=== PATIENT | male | born 1985 | race American Indian/Alaskan Native ===

== ENCOUNTER 2016-11-14 08:42 | Inpatient (IN) | payer OTHER ==
[2016-11-12 09:25] VITALS: BP 119/83
[~2016-11-14] VITALS: Ht 177.8 cm; Wt 116.4 kg
[~2016-11-14 08:42] MED LIST: INSU100V10 SQ-INSULIN; LISI5TAB7 PO; NPH,100V4 SQ-INSULIN; POTASSIUM/MAGNESIUM PO; SAXA5TAB PO; SIMV40TA3 PO
[2016-11-14] MEDS ORDERED: THROMBIN 5,000 UNIT VIAL TP ONE (09:28)
[2016-11-14] MEDS ORDERED: LIDOCAINE/PF 1%-EPI 1:200K, 30ML ONE (09:28)
[2016-11-14] MEDS ORDERED: BACITRACIN 50,000 UNIT ONE (09:28)
[2016-11-14] MEDS ORDERED: LACTATED RINGERS 1,000 ML IV SCH (09:50)
[2016-11-14] MEDS ORDERED: FENTANYL PF 100 MCG/2ML ONE ×3 (12:17→13:35)
[2016-11-14] MEDS: FENTANYL PF 100 MCG/2ML IV PRN ×4 (12:55→13:30)
[2016-11-14] MEDS: morphine SULFATE 10 MG/ML, 1ML IV PRN ×2 (13:10→13:25)
[2016-11-14] MEDS ORDERED: morphine SULFATE 10 MG/ML, 1ML ONE (13:17)
[2016-11-14] MEDS ORDERED: OXYcodone 5 MG/5 ML ORAL.SOL UDC PO PRN (13:30)
[2016-11-14] MEDS ORDERED: LABETALOL 5MG/ML, 20ML IV PRN (13:30)
[2016-11-14] MEDS ORDERED: ONDANSETRON 2MG/ML, 2ML IVPush PRN (13:30)
[2016-11-14] MEDS ORDERED: HYDROmorphone 1 MG/ML, 1ML IV PRN (13:30)
[2016-11-14 14:35] VITALS: BP 107/67
[2016-11-14 14:37] VITALS: BP 107/67
[2016-11-14] MEDS ORDERED: ONDANSETRON 2MG/ML, 2ML IV PRN (15:00)
[2016-11-14] MEDS ORDERED: HYDROcodone/APAP 10/325 MG TABLET PO PRN (15:00)
[2016-11-14] MEDS ORDERED: DIAZEPAM 5 MG/ML, 2ML IV PRN (15:00)
[2016-11-14] MEDS ORDERED: PROMETHAZINE 25 MG/ML, 1ML IM PRN (15:00)
[2016-11-14] MEDS ORDERED: MAGNESIUM HYDROXIDE 8%, 30ML UDC PO PRN (15:00)
[2016-11-14] MEDS ORDERED: DIPHENHYDRAMINE 50 MG/ML, 1ML IVPush PRN (15:00)
[2016-11-14] MEDS ORDERED: HYDROcodone/APAP 5/325 TABLET PO PRN (15:00)
[2016-11-14] MEDS ORDERED: BISACODYL 10 MG SUPP PR PRN (15:00)
[2016-11-14] MEDS ORDERED: ROCURONIUM 10 MG/ML ONE (15:51)
[2016-11-14] MEDS ORDERED: PROPOFOL 10 MG/ML, 20ML ONE (15:51)
[2016-11-14] MEDS ORDERED: CEFAZOLIN 1,000 MG ONE (15:51)
[2016-11-14] MEDS ORDERED: SUCCINYLCHOLINE 20 MG/ML, 10ML ONE (15:51)
[2016-11-14] MEDS ORDERED: GLYCOPYRROLATE 0.2MG/1ML ONE (15:51)
[2016-11-14] MEDS ORDERED: NEOSTIGMINE 1 MG/ML, 10ML ONE (15:51)
[2016-11-14] MEDS: INSULIN REGULAR 100 UNITS/ML, 3ML VIAL SQ-INSULIN PRN (16:51)
[2016-11-14] MEDS: METOCLOPRAMIDE 5 MG/ML, 2ML IV SCH ×2 (16:56→22:04)
[2016-11-14] MEDS ORDERED: MORPHINE SULFATE 4 MG/ML, 1ML IVPush PRN (17:00)
[2016-11-14] MEDS: NS + 20MEQ KCL 1,000 ML IV SCH (17:48)
[2016-11-14] MEDS: CEFAZOLIN PMX 1GM/50ML 50 ML IVPB SCH (17:48)
[2016-11-14 18:50] VITALS: BP 115/68
[2016-11-14] MEDS ORDERED: INSULIN REGULAR 100 UNITS/ML, 3ML VIAL SQ-INSULIN SCH (21:00)
[2016-11-14] MEDS: SIMVASTATIN 40 MG TABLET PO SCH (22:01)
[2016-11-14] MEDS: INSULIN NPH HUMAN 100 UNIT/ML, 3ML VIAL SQ-INSULIN PRN (22:02)
[2016-11-14 23:31] VITALS: BP 120/74
[2016-11-15] MEDS: CEFAZOLIN PMX 1GM/50ML 50 ML IVPB SCH (02:30)
[2016-11-15 02:58] VITALS: BP 124/76
[2016-11-15] MEDS: METOCLOPRAMIDE 5 MG/ML, 2ML IV SCH ×4 (04:35→21:20)
[2016-11-15] MEDS: NS + 20MEQ KCL 1,000 ML IV SCH ×3 (05:13→17:54)
[2016-11-15 05:19] LABS: BLOOD UREA NITROGEN 12 mg/dL (7-18)
[2016-11-15] MEDS: DIAZEPAM 5 MG TABLET PO PRN ×2 (05:28→12:58)
[2016-11-15] MEDS: ENOXAPARIN 30 MG/0.3 ML SQ SCH ×2 (05:38→17:57)
[2016-11-15 05:56] LABS: DIFF TOTAL CELLS COUNTED 100 CELL DIFF
[2016-11-15 05:57] LABS: VERIFY COUNTS? YES
[2016-11-15 06:48] VITALS: BP 113/70
[2016-11-15] MEDS: SENNA/DOCUSATE TABLET PO SCH (08:09)
[2016-11-15] MEDS: INSULIN NPH HUMAN 100 UNIT/ML, 3ML VIAL SQ-INSULIN PRN ×2 (08:09→21:20)
[2016-11-15] MEDS ORDERED: LISINOPRIL 5 MG TABLET PO SCH (09:00)
[2016-11-15] MEDS ORDERED: CEFAZOLIN PMX 2GM/100ML 100 ML IV SCH (09:30)
[2016-11-15] MEDS: MAGNESIUM CITRATE 300ML ORAL SOL PO SCH ×2 (10:00→21:00)
[2016-11-15] MEDS: CEFAZOLIN PMX 2GM/50ML 50 ML IV SCH ×2 (10:20→17:55)
[2016-11-15] MEDS: POLYETHYLENE GLYCOL 17 GM PACKET PO SCH (10:20)
[2016-11-15] MEDS: OXYcodone IR 5MG TABLET PO PRN ×4 (10:33→23:33)
[2016-11-15] MEDS: INSULIN REGULAR 100 UNITS/ML, 3ML VIAL SQ-INSULIN PRN ×2 (11:52→16:39)
[2016-11-15 12:45] VITALS: BP 122/80
[2016-11-15 20:00] VITALS: BP 142/81
[2016-11-15] MEDS: SIMVASTATIN 40 MG TABLET PO SCH (21:19)
[2016-11-16 02:00] VITALS: BP 116/73
[2016-11-16] MEDS: CEFAZOLIN PMX 2GM/50ML 50 ML IV SCH ×2 (02:27→09:33)
[2016-11-16] MEDS: OXYcodone IR 5MG TABLET PO PRN ×3 (03:51→13:50)
[2016-11-16] MEDS: NS + 20MEQ KCL 1,000 ML IV SCH ×2 (03:52→13:44)
[2016-11-16] MEDS: METOCLOPRAMIDE 5 MG/ML, 2ML IV SCH ×2 (03:52→10:00)
[2016-11-16] MEDS: ENOXAPARIN 30 MG/0.3 ML SQ SCH (06:19)
[2016-11-16 06:25] LABS: BLOOD UREA NITROGEN 8 mg/dL (7-18)
[2016-11-16] MEDS: INSULIN NPH HUMAN 100 UNIT/ML, 3ML VIAL SQ-INSULIN PRN (08:11)
[2016-11-16] MEDS: MAGNESIUM CITRATE 300ML ORAL SOL PO SCH (08:12)
[2016-11-16] MEDS: POLYETHYLENE GLYCOL 17 GM PACKET PO SCH (08:12)
[2016-11-16] MEDS: SENNA/DOCUSATE TABLET PO SCH (08:12)
[2016-11-16] MEDS: INSULIN REGULAR 100 UNITS/ML, 3ML VIAL SQ-INSULIN PRN ×2 (08:12→11:48)
[2016-11-16 09:19] VITALS: BP 118/75
[2016-11-16 13:29] VITALS: BP 123/82
[2016-11-16 13:52] VITALS: BP 131/83
[2016-11-16] MEDS ORDERED: POLY17PO5 PO (15:58)
[2016-11-16] MEDS ORDERED: MAGN400O4 PO (16:00)
[2016-11-16] MEDS ORDERED: MULT-658 PO (16:02)
[2016-11-16] MEDS ORDERED: ENOX40SY4 SQ (16:03)
[2016-11-16] MEDS ORDERED: OXYC-229 PO (16:04)
== END 2016-11-16 16:34 | disposition home or self-care (01) | DRG 460 ==
LOC: ORIP 08:42 → 4NOR 14:25 → DCLOUNGE 11-16 15:50
PROVIDERS: ADMIT Orthopaedic Surgery Orthopaedic Surgery of the Spine; ATTEND Orthopaedic Surgery Orthopaedic Surgery of the Spine
PROC: 0SB40ZZ Excision of Lumbosacral Disc, Open Approach (ICD-10-PCS; 2016-11-14)
PROC: 0SG30A0 Fusion of Lumbosacral Joint with Interbody Fusion Device, Anterior Approach, Anterior Column, Open Approach (ICD-10-PCS; principal; 2016-11-14 10:00)
DX: M43.17 Spondylolisthesis, lumbosacral region (principal); M47.26 Other spondylosis with radiculopathy, lumbar region; E66.01 Morbid (severe) obesity due to excess calories; E11.319 Type 2 diabetes mellitus with unspecified diabetic retinopathy without macular edema; E88.81 Metabolic syndrome and other insulin resistance; K59.03 Drug induced constipation; E78.5 Hyperlipidemia, unspecified; Z79.4 Long term (current) use of insulin; Z68.36 Body mass index [BMI] 36.0-36.9, adult; Z79.899 Other long term (current) drug therapy; Z87.891 Personal history of nicotine dependence; Z82.49 Family history of ischemic heart disease and other diseases of the circulatory system; Z83.3 Family history of diabetes mellitus; Z90.89 Acquired absence of other organs; Z98.84 Bariatric surgery status; Z88.8 Allergy status to other drugs, medicaments and biological substances
CPT/HCPCS: 36415; 72100; 74000; 80048; 82962; 85025; C1713; J0690; J1650; J1815; J2270; J2704; J2710; J3010; J3480; J3490; C1762; J0330; J2765; J7120

== ENCOUNTER 2016-11-21 06:13 | Inpatient (IN) | payer OTHER ==
[~2016-11-21] VITALS: Ht 177.8 cm; Wt 112.7 kg
[~2016-11-21 06:13] MED LIST changes: +ENOX40SY4 SQ; +FENTANYL PF 100 MCG/2ML IV PRN; +HYDROmorphone 1 MG/ML, 1ML IV PRN; +LABETALOL 5MG/ML, 20ML IV PRN; +MAGN400O4 PO; +MEPERIDINE/PF 25MG/0.5ML IVPush PRN; +MIDAZOLAM 1 MG/ML, 2ML IV PRN; +MULT-658 PO; +ONDANSETRON 2MG/ML, 2ML IVPush PRN; +OXYC-229 PO; +OXYcodone 5 MG/5 ML ORAL.SOL UDC PO PRN; +POLY17PO5 PO; +PROMETHAZINE 25 MG/ML, 1ML IV PRN; +hydrALAzine 20 MG/ML, 1ML IV PRN
[2016-11-21] MEDS ORDERED: THROMBIN 5,000 UNIT VIAL TP ONE (06:59)
[2016-11-21] MEDS ORDERED: LIDOCAINE 0.5%-EPI 1:200K, 50ML ONE (06:59)
[2016-11-21] MEDS ORDERED: VANCOMYCIN 1,000 MG ONE (06:59)
[2016-11-21] MEDS ORDERED: BUPIVACAINE/PF-EPI 0.5% 1:200K ONE (06:59)
[2016-11-21] MEDS ORDERED: KETAMINE 10 MG/ML, 20ML ONE (07:37)
[2016-11-21] MEDS ORDERED: FENTANYL PF 250 MCG/5ML ONE (07:37)
[2016-11-21] MEDS ORDERED: LACTATED RINGERS 1,000 ML IV SCH (07:37)
[2016-11-21 07:39] VITALS: BP 120/67
[2016-11-21] MEDS ORDERED: GLYCOPYRROLATE 0.2MG/1ML ONE (07:40)
[2016-11-21] MEDS ORDERED: PROPOFOL 10 MG/ML, 20ML ONE (07:40)
[2016-11-21] MEDS ORDERED: METOCLOPRAMIDE 5 MG/ML, 2ML ONE (07:40)
[2016-11-21] MEDS ORDERED: CEFAZOLIN 1,000 MG ONE (07:40)
[2016-11-21] MEDS ORDERED: ROCURONIUM 10 MG/ML ONE (07:40)
[2016-11-21] MEDS ORDERED: NEOSTIGMINE 1 MG/ML, 10ML ONE (07:40)
[2016-11-21] MEDS ORDERED: PROPOFOL 10 MG/ML, 50ML ONE (07:40)
[2016-11-21] MEDS ORDERED: ONDANSETRON 2MG/ML, 2ML ONE (07:40)
[2016-11-21] MEDS ORDERED: GENTAMICIN 80 MG/2 ML ONE ×2 (07:40→08:04)
[2016-11-21] MEDS ORDERED: PROMETHAZINE 25 MG/ML, 1ML IV PRN (08:30)
[2016-11-21] MEDS ORDERED: LABETALOL 5MG/ML, 20ML IV PRN (08:30)
[2016-11-21] MEDS ORDERED: OXYcodone 5 MG/5 ML ORAL.SOL UDC PO PRN (08:30)
[2016-11-21] MEDS ORDERED: hydrALAzine 20 MG/ML, 1ML IV PRN (08:30)
[2016-11-21] MEDS ORDERED: FENTANYL PF 100 MCG/2ML IV PRN (08:30)
[2016-11-21] MEDS ORDERED: ONDANSETRON 2MG/ML, 2ML IVPush PRN (08:30)
[2016-11-21] MEDS ORDERED: HYDROmorphone 1 MG/ML, 1ML ONE (10:43)
[2016-11-21] MEDS ORDERED: FENTANYL PF 100 MCG/2ML ONE (10:53)
[2016-11-21] MEDS ORDERED: HYDROmorphone 2 MG/ML, 1ML ONE ×2 (11:40→12:02)
[2016-11-21] MEDS: HYDROmorphone 1 MG/ML, 1ML IV PRN ×8 (11:42→12:40)
[2016-11-21] MEDS ORDERED: DIAZEPAM 5 MG/ML, 2ML ONE (12:02)
[2016-11-21] MEDS: DIAZEPAM 5 MG TABLET PO PRN (12:07)
[2016-11-21] MEDS ORDERED: HYDROcodone/APAP 5/325 TABLET PO PRN (13:30)
[2016-11-21] MEDS ORDERED: DIPHENHYDRAMINE 50 MG/ML, 1ML IVPush PRN (13:30)
[2016-11-21] MEDS ORDERED: ONDANSETRON 2MG/ML, 2ML IV PRN (13:30)
[2016-11-21] MEDS ORDERED: PROMETHAZINE 25 MG/ML, 1ML IM PRN (13:30)
[2016-11-21] MEDS ORDERED: METHOCARBAMOL 1,000 MG in DEXTROSE 5% 100 ML IV ONE (13:30)
[2016-11-21] MEDS ORDERED: DIPHENHYDRAMINE 50 MG/ML, 1ML IM PRN (13:30)
[2016-11-21] MEDS ORDERED: DIPHENHYDRAMINE 50 MG CAPSULE PO PRN (13:30)
[2016-11-21] MEDS ORDERED: HYDROcodone/APAP 10/325 MG TABLET PO PRN (13:30)
[2016-11-21] MEDS ORDERED: DIAZEPAM 5 MG/ML, 2ML IV PRN (13:30)
[2016-11-21] MEDS ORDERED: morphine SULFATE 10 MG/ML, 1ML IVPush PRN (14:30)
[2016-11-21] MEDS: NS + 20MEQ KCL 1,000 ML IV SCH (14:36)
[2016-11-21] MEDS: CEFAZOLIN PMX 2GM/50ML 50 ML IVPB SCH (16:29)
[2016-11-21] MEDS ORDERED: INSULIN ASPART 100 UNITS/ML, PEN SQ-INSULIN SCH (17:00)
[2016-11-21] MEDS ORDERED: DEXTROSE 50%, 50ML SYRINGE IVPush PRN (17:30)
[2016-11-21 17:44] LABS: ASPARTATE AMINO TRANSFERASE 26 U/L (15-37); BLOOD UREA NITROGEN 12 mg/dL (7-18)
[2016-11-21 20:04] VITALS: BP 125/81
[2016-11-21] MEDS ORDERED: INSULIN NPH HUMAN 100 UNIT/ML, 3ML VIAL SQ-INSULIN SCH (21:00)
[2016-11-21] MEDS ORDERED: INSULIN REGULAR 100 UNITS/ML, 3ML VIAL SQ-INSULIN SCH (21:00)
[2016-11-21] MEDS: INSULIN ASPART 100 UNITS/ML, PEN SQ-INSULIN SCH (21:00)
[2016-11-21] MEDS: METHOCARBAMOL 750 MG in DEXTROSE 5% 100 ML IV SCH (21:07)
[2016-11-21] MEDS: INSULIN DETEMIR 100 UNITS/ML, PEN SQ-INSULIN SCH (21:18)
[2016-11-21] MEDS: SIMVASTATIN 40 MG TABLET PO SCH (21:18)
[2016-11-21 23:36] VITALS: BP 126/85
[2016-11-22] MEDS: CEFAZOLIN PMX 2GM/50ML 50 ML IVPB SCH ×3 (00:38→17:39)
[2016-11-22] MEDS: NS + 20MEQ KCL 1,000 ML IV SCH (03:08)
[2016-11-22 04:25] VITALS: BP 121/81
[2016-11-22 05:51] LABS: BLOOD UREA NITROGEN 9 mg/dL (7-18)
[2016-11-22] MEDS: METHOCARBAMOL 750 MG in DEXTROSE 5% 100 ML IV SCH ×3 (06:14→22:54)
[2016-11-22 07:49] VITALS: BP 116/73
[2016-11-22] MEDS: INSULIN ASPART 100 UNITS/ML, PEN SQ-INSULIN SCH ×4 (07:57→21:00)
[2016-11-22] MEDS: MAGNESIUM HYDROXIDE 8%, 30ML UDC PO SCH (09:21)
[2016-11-22] MEDS: POLYETHYLENE GLYCOL 17 GM PACKET PO SCH (09:21)
[2016-11-22] MEDS: SENNA/DOCUSATE TABLET PO SCH (09:27)
[2016-11-22] MEDS: DIAZEPAM 5 MG TABLET PO PRN ×2 (09:27→17:42)
[2016-11-22] MEDS: OXYcodone/APAP 10/325MG TABLET PO PRN ×4 (09:27→22:53)
[2016-11-22] MEDS: LISINOPRIL 5 MG TABLET PO SCH (09:27)
[2016-11-22] MEDS: INSULIN DETEMIR 100 UNITS/ML, PEN SQ-INSULIN SCH (09:28)
[2016-11-22] MEDS ORDERED: NS + 20MEQ KCL 1,000 ML IV SCH (09:30)
[2016-11-22 13:16] VITALS: BP 103/62
[2016-11-22 20:52] VITALS: BP 99/58
[2016-11-22] MEDS: SIMVASTATIN 40 MG TABLET PO SCH (22:53)
[2016-11-23] MEDS: CEFAZOLIN PMX 2GM/50ML 50 ML IVPB SCH ×2 (00:29→08:45)
[2016-11-23] MEDS: DIAZEPAM 5 MG TABLET PO PRN ×2 (00:30→06:17)
[2016-11-23] MEDS: INSULIN DETEMIR 100 UNITS/ML, PEN SQ-INSULIN SCH ×2 (00:31→08:45)
[2016-11-23 00:59] VITALS: BP 111/70
[2016-11-23] MEDS: OXYcodone/APAP 10/325MG TABLET PO PRN ×3 (02:37→10:49)
[2016-11-23 05:03] LABS: BLOOD UREA NITROGEN 9 mg/dL (7-18)
[2016-11-23 05:09] LABS: ASPARTATE AMINO TRANSFERASE 11 U/L (15-37)
[2016-11-23] MEDS: METHOCARBAMOL 750 MG in DEXTROSE 5% 100 ML IV SCH (06:17)
[2016-11-23] MEDS: INSULIN ASPART 100 UNITS/ML, PEN SQ-INSULIN SCH ×2 (07:10→11:57)
[2016-11-23 07:35] VITALS: BP 115/73
[2016-11-23] MEDS: POLYETHYLENE GLYCOL 17 GM PACKET PO SCH (08:44)
[2016-11-23] MEDS: SENNA/DOCUSATE TABLET PO SCH (08:45)
[2016-11-23] MEDS: LISINOPRIL 5 MG TABLET PO SCH (08:45)
[2016-11-23] MEDS: MAGNESIUM HYDROXIDE 8%, 30ML UDC PO SCH (08:45)
[2016-11-23] MEDS ORDERED: MAGNESIUM CITRATE 300ML ORAL SOL PO ONE (09:30)
[2016-11-23] MEDS ORDERED: INSU100V5 SQ-INSULIN (11:38)
[2016-11-23] MEDS ORDERED: INSU100I28 SQ-INSULIN (11:38)
[2016-11-23] MEDS ORDERED: METH750T87 PO (13:50)
[2016-11-23] MEDS ORDERED: CEPH-368 PO (13:50)
[2016-11-23] MEDS ORDERED: METHOCARBAMOL 750 MG TABLET PO SCH (21:30)
== END 2016-11-23 14:04 | disposition home or self-care (01) | DRG 460 ==
LOC: ORIP 06:13 → 4NOR 13:01 → DCLOUNGE 11-23 13:40
PROVIDERS: ADMIT Orthopaedic Surgery Orthopaedic Surgery of the Spine; ATTEND Orthopaedic Surgery Orthopaedic Surgery of the Spine
PROC: 01NB0ZZ Release Lumbar Nerve, Open Approach (ICD-10-PCS; 2016-11-21)
PROC: 0SG30Z1 (ICD-10-PCS; principal; 2016-11-21 07:30)
DX: M43.17 Spondylolisthesis, lumbosacral region (principal); M48.07 Spinal stenosis, lumbosacral region; I10 Essential (primary) hypertension; E78.5 Hyperlipidemia, unspecified; E11.21 Type 2 diabetes mellitus with diabetic nephropathy; E11.319 Type 2 diabetes mellitus with unspecified diabetic retinopathy without macular edema; E66.01 Morbid (severe) obesity due to excess calories; Z68.35 Body mass index [BMI] 35.0-35.9, adult; Z87.891 Personal history of nicotine dependence; Z98.84 Bariatric surgery status; Z88.8 Allergy status to other drugs, medicaments and biological substances; Z83.3 Family history of diabetes mellitus; Z82.49 Family history of ischemic heart disease and other diseases of the circulatory system; Z79.899 Other long term (current) drug therapy
CPT/HCPCS: 36415; 71020; 72100; 80048; 80053; 80061; 81003; 82962; 83036; 83735; 85025; C1713; J0690; J1170; J1815; J2270; J2405; J2704; J2710; J3010; J3360; J3370; J3480; J3490; C1762; J1580; J2765; J2800; J7120